=== PATIENT | female | born 1970 | race Caucasian/White ===

== ENCOUNTER 2021-12-30 15:17 | Outpatient (CLI) | payer BC | END 2021-12-30 15:18 | disposition home or self-care (01) | LOC: CSHMAMMO 15:17 | PROVIDERS: ATTEND Obstetrics & Gynecology | DX: Z12.31 Encounter for screening mammogram for malignant neoplasm of breast (principal) | CPT/HCPCS: 77063; 77067 ==

== ENCOUNTER 2023-01-24 08:39 | Outpatient (CLI) | payer BC | END 2023-01-24 08:40 | disposition home or self-care (01) | LOC: CSHMAMMO 08:39 | PROVIDERS: ATTEND Family Medicine | DX: Z12.31 Encounter for screening mammogram for malignant neoplasm of breast (principal) | CPT/HCPCS: 77063; 77067 ==

== ENCOUNTER 2023-10-26 14:33 | Outpatient (CLI) | payer BC | END 2023-10-26 14:34 | disposition home or self-care (01) | LOC: CSHCT 14:33 | PROVIDERS: ATTEND Internal Medicine | DX: R05.2 Subacute cough (principal) | CPT/HCPCS: 71250 ==